=== PATIENT | female | born 1950 | race Caucasian/White ===

== ENCOUNTER 2017-05-19 09:13 | Emergency (ER) ==
[2017-05-19 09:21] VITALS: BP 152/74; TEMP 98.9; BMI 31.1
--- NOTE | 2017-05-19 09:46 | ED.PDOC ---
General ED Provider: Dr. ANN LOWERY Chief Complaint: Non-specific Complaint Stated Complaint: patient is a 66 year old female who complains of a lump on the left neck that started yesterday worse today. Tender when she palpates or moves her head. She is on warfin for Mechanical heart valves. Has not taken any medications for pain. Denies any fever or chills. Time Seen by Physician: 09:42 Mode of Arrival: Walk-In Information Source: Patient Exam Limitations: No limitations Primary Care Provider: DANIELE ALCANTAR Nursing and Triage Documentation Reviewed and Agree: Yes Reviewed sepsis parameters & appropriate labs ordered?: Yes System Inflammatory Response Syndrome: Not Applicable Sepsis Protocol: For patient's 13 years and over: Temp is 96.8 and below OR 101 and greater Pulse >90 BPM Resp >20/minute Acutely Altered Mental Status Are patient's symptoms suggestive of a new infection, such as: -Pneumonia -Skin, Soft Tissue -Endocarditis -UTI -Bone, Joint Infection -Implantable Device -Acute Abdominal Infection -Wound Infection -Meningitis -Blood Stream Catheter Infection -Unknown System Inflammatory Response Syndrome: Not Applicable Skin Complaint Exam - Skin/Soft Tissue Complaint/Exam Onset/Duration: 2 days Symptoms Are: Still present Timing: Constant Initial Severity: Moderate Current Severity: Moderate Location: Left neck/shoulder area Character: Reports: Swelling, Raised, Painful Aggravating: Reports: None Alleviating: Reports: None Associated Signs and Symptoms: Reports: Tenderness Related History: Denies: Similar episode, Recent trauma, Foreign body, Insect bite/sting, Recent Med change, Prior MRSA/VRE, Recent inpatient, Recent travel, Immunocompromised Review of Systems - Review Of Systems Constitutional: Reports: No symptoms Eyes: Reports: No symptoms Ears, Nose, Mouth, Throat: Reports: No symptoms Respiratory: Reports: No symptoms Cardiac: Reports: No symptoms GI: Reports: No symptoms : Reports: No symptoms Musculoskeletal: Reports: No symptoms Skin: Reports: Lesions, Lumps Neurological: Reports: Anxiety Endocrine: Reports: No symptoms Hematologic/Lymphatic: Reports: No symptoms All Other Systems: Reviewed and Negative Past Medical History - Past Medical History Endocrine: Reports: DM 2 Cardiovascular: Reports: CAD, Hypertension Respiratory: Reports: None Hematological: Reports: None Gastrointestinal: Reports: None Genitourinary: Reports: None Neuro/Psych: Reports: None Musculoskeletal: Reports: None Cancer: Reports: Breast Last Menstrual Period: n/a - Surgical History General Surgical History: Reports: Pacemaker, Other (2 Mechanical Heart valve replacement ) - Family History Family History: Reports: Unknown - Social History Smoking Status: Former smoker Hx Substance Use: No Alcohol Screening: None Physical Exam - Physical Exam Appearance: Well-appearing, Well-nourished Pain Distress: Moderate Eyes: LANDRY, EOMI, Conjunctiva clear ENT: Ears normal, Nose normal, Oropharynx normal Respiratory: Airway patent, Breath sounds clear, Breath sounds equal, Respirations nonlabored Cardiovascular: RRR, Pulses normal, No rub, No murmur GI/: Soft, Nontender, No masses, Bowel sounds normal, No Organomegaly Musculoskeletal: Normal strength, ROM intact, No edema, No calf tenderness Skin: Warm, Dry, Normal color Neurological: Sensation intact, Motor intact, Reflexes intact, Cranial nerves intact, Alert, Oriented Psychiatric: Anxious Critical Care Note - Critical Care Note Total Time (mins): 0 Course - Course Hematology/Chemistry: 05/19/17 09:50 05/19/17 09:50 Orders, Labs, Meds: Lab Review 05/19/17 05/19/17 05/19/17 09:50 09:50 09:50 WBC 7.88 RBC 4.57 Hgb 13.8 Hct 40.8 MCV 89.3 MCH 30.2 MCHC 33.8 RDW Coeff of Waqas 12.7 Plt Count 247 Immature Gran % (Auto) 0.4 Neut % (Auto) 57.0 Lymph % (Auto) 33.2 Howell % (Auto) 7.1 Eos % (Auto) 1.9 Baso % (Auto) 0.4 Immature Gran # (Auto) 0.0 Neut # 4.5 Lymph # 2.6 Howell # 0.6 Eos # 0.2 Baso # 0.0 PT 25.2 H INR 2.54 Sodium 144 Potassium 4.4 Chloride 105 Carbon Dioxide 30 Anion Gap 13.4 BUN 13 Creatinine 0.78 Estimated GFR (MDRD) 74.00 BUN/Creatinine Ratio 16.66 Glucose 97 Calcium 9.9 Total Bilirubin 1.9 H AST 26 ALT 21 Alkaline Phosphatase 85 Total Protein 7.8 Albumin 4.3 Globulin 3.5 Albumin/Globulin Ratio 1.23 Orders Category Date Time Status CBC W/ AUTO DIFF Stat LAB 05/19/17 09:50 Completed COMPREHENSIVE METABOLIC PANEL Stat LAB 05/19/17 09:50 Completed PT WITH INR Stat LAB 05/19/17 09:50 Completed Vital Signs: Temp Pulse Resp BP Pulse Ox 05/19/17 09:13 98.9 F 78 16 152/74 H 97 Departure - Departure Time of Disposition: 09:53 Disposition: HOME SELF-CARE Discharge Problem: Lymphadenitis, acute Instructions: Lymphangitis (ED) Condition: Stable Pt referred to PMD for follow-up: Yes Additional Instructions: Take Medications as prescribed Follow up with PCP in 3 days to have you protime checked since you area on antibiotic. Prescriptions: Hydrocodone/Acetaminophen [[place] 5-325 Tablet] 1 tab PO Q6HR PRN #12 tablet PRN Reason: PAIN Sulfamethoxazole/Trimethoprim [Bactrim Ds Tablet] 1 each PO BID #20 tablet Allergies/Adverse Reactions: Allergies Penicillins Adverse Reaction (Verified 05/19/17 09:17) Home Medications: Ambulatory Orders Atorvastatin Calcium 20 mg PO DAILY 05/19/17 Cranberry Fruit Extract [Cranberry] 200 mg PO QID 05/19/17 Fexofenadine HCl [Courtney] 60 mg PO BID 05/19/17 Furosemide [Lasix] 20 mg PO DAILY 05/19/17 Hydrocodone/Acetaminophen [[place] 5-325 Tablet] 1 tab PO Q6HR PRN #12 tablet 10/29 L.acidoph,Paracasei, B.lactis [Probiotic] 1 each PO DAILY 05/19/17 Levothyroxine Sodium 50 mcg PO DAILY 05/19/17 Metformin HCl 500 mg PO BID 05/19/17 Metoprolol Succinate 100 mg PO BID 05/19/17 Multivit-Min/FA/Lycopen/Lutein [Centrum Silver Tablet] 1 each PO DAILY 05/19/17 Omeprazole [Prilosec] 20 mg PO QDAC 05/19/17 Potassium Chloride 10 meq PO DAILY 05/19/17 Sitagliptin Phosphate [Januvia] 100 mg PO EVERY OTHER DAY 05/19/17 Sulfamethoxazole/Trimethoprim [Bactrim Ds Tablet] 1 each PO BID #20 tablet 05/19 Warfarin Sodium [Coumadin] 10 mg PO DAILY 05/19/17 Disposition Discussed With: Patient, Family
== END 2017-05-19 11:03 | disposition home or self-care (01) ==
LOC: ED 09:13
DX: L04.0 Acute lymphadenitis of face, head and neck (principal); Z79.01 Long term (current) use of anticoagulants; Z95.2 Presence of prosthetic heart valve; E11.9 Type 2 diabetes mellitus without complications; I10 Essential (primary) hypertension; I25.10 Atherosclerotic heart disease of native coronary artery without angina pectoris; Z79.899 Other long term (current) drug therapy
CPT/HCPCS: 36415; 80053; 85025; 85610; 99282